=== PATIENT | male | born 1965 | race Caucasian/White ===

== ENCOUNTER → 2023-01-03 | Outpatient (CLI) | payer BC ==
[~2023-01-03] MED LIST: ESZO3 PO; FENO160T16 PO; GLIP-162 PO; IOHEXOL-350 75 ML VIAL IV ONE; LISI2.5T13 PO; METF-444 PO; MIRT45TA83 PO; PRAV40TA3 PO
== END | disposition home or self-care (01) ==
LOC: RAH 11:03
PROVIDERS: ATTEND Internal Medicine
DX: K86.1 Other chronic pancreatitis (principal); R93.2 Abnormal findings on diagnostic imaging of liver and biliary tract
CPT/HCPCS: 74170; Q9967